=== PATIENT | male | born 1940 | race Caucasian/White ===

== ENCOUNTER → 2016-10-24 | Outpatient (CLI) | payer MEDICARE ==
[~2016-10-24] MED LIST: LEVO25TA4 PO; LOVA10TA PO; MULT-252 PO; OMEP-110 PO; REGADENOSON 0.4 MG/5 ML SYRINGE ONE; TERA1CAP3 PO
== END | disposition home or self-care (01) ==
LOC: CFH 07:57
PROVIDERS: ATTEND Internal Medicine Cardiovascular Disease
DX: I25.810 Atherosclerosis of coronary artery bypass graft(s) without angina pectoris (principal); I25.9 Chronic ischemic heart disease, unspecified; I10 Essential (primary) hypertension
CPT/HCPCS: 78452; 93017; 93306; A9502; J2785

== ENCOUNTER 2017-09-10 07:57 | Observation (INO) | payer MEDICARE ==
[2017-09-08 13:42] LABS: BASOPHILS # (AUTO) 0.02 x10^3/uL (0-0.1); BASOPHILS % (AUTO) 0 % (0-1); EOSINOPHILS # (AUTO) 0.07 x10^3/uL (0-0.4); EOSINOPHILS % (AUTO) 1 % (1-7); LYMPHOCYTES # (AUTO) 1.27 x10^3/uL (1-3.4); LYMPHOCYTES % (AUTO) 23 % (22-44); MD NO; MEAN CORPUSCULAR HEMOGLOBIN 29.9 pg (27.5-34.5); MEAN CORPUSCULAR HGB CONC 33.8 g/dL (33.2-36.2); MEAN CORPUSCULAR VOLUME 88.4 fL (81-97); MONOCYTES # (AUTO) 0.39 x10^3/uL (0.2-0.8); MONOCYTES % (AUTO) 7 % (2-9); NEUTROPHILS # (AUTO) 3.89 x10^3/uL (1.8-6.8); NEUTROPHILS % (AUTO) 69 % (42-75); PLATELET COUNT 223 x10^3/uL (130-400); RED BLOOD COUNT 4.93 x10^6/uL (4.38-5.82)
[2017-09-08 13:54] LABS: ANION GAP 7 mmol/L (5-15); CALCIUM 9.3 mg/dL (8.5-10.1); CHLORIDE 107 mmol/L (98-107); CREATININE 1.38 mg/dL (0.7-1.3)
[~2017-09-10] VITALS: Ht 182.9 cm; Wt 89.2 kg
[~2017-09-10 07:57] MED LIST changes: +HYDR25TA6 PO; +METO25TA91 PO; -REGADENOSON 0.4 MG/5 ML SYRINGE ONE
[2017-09-10] MEDS ORDERED: CEFAZOLIN PMX 1GM/50ML 50 ML ONE (10:06)
[2017-09-10] MEDS ORDERED: CEFAZOLIN 1,000 MG ONE (10:06)
[2017-09-10] MEDS ORDERED: LIDOCAINE/PF 1%, 30ML ONE (10:06)
[2017-09-10] MEDS ORDERED: MIDAZOLAM 1 MG/ML, 5ML ONE (10:06)
[2017-09-10] MEDS ORDERED: FENTANYL PF 100 MCG/2ML ONE (10:06)
[2017-09-10] MEDS ORDERED: ACETAMINOPHEN 325 MG TABLET PO PRN (11:30)
[2017-09-10] MEDS ORDERED: HYDROcodone/APAP 5/325 TABLET PO PRN (11:30)
[2017-09-10 16:45] VITALS: BP 157/80
[2017-09-10] MEDS: CEFAZOLIN PMX 1GM/50ML 50 ML IVPB SCH (18:02)
[2017-09-10 19:26] VITALS: BP 118/76
[2017-09-10] MEDS ORDERED: LOVASTATIN 10 MG TABLET PO SCH (21:00)
[2017-09-10] MEDS: SODIUM CHLORIDE FLUSH 10ML SYR IVF SCH (21:02)
[2017-09-11] MEDS: CEFAZOLIN PMX 1GM/50ML 50 ML IVPB SCH (01:59)
[2017-09-11 03:25] VITALS: BP 122/63
[2017-09-11] MEDS ORDERED: LEVOTHYROXINE 100 MCG TABLET ONE (08:46)
[2017-09-11 08:51] VITALS: BP 161/90
[2017-09-11] MEDS: SODIUM CHLORIDE FLUSH 10ML SYR IVF SCH (08:58)
[2017-09-11] MEDS ORDERED: METOPROLOL SUCCINATE 25 MG TAB.ER.24H PO SCH (09:00)
[2017-09-11] MEDS ORDERED: OMEPRAZOLE 20 MG CAPSULE.DR PO SCH (09:00)
[2017-09-11] MEDS ORDERED: LEVOTHYROXINE 25 MCG TABLET PO SCH (09:00)
[2017-09-11] MEDS ORDERED: TERAZOSIN 5MG CAPSULE PO SCH (09:00)
[2017-09-11] MEDS ORDERED: HYDROCHLOROTHIAZIDE 25 MG TABLET PO SCH (09:00)
[2017-09-11] MEDS ORDERED: MULTIVITAMIN 1 TABLET PO SCH (09:00)
[2017-09-11 10:45] VITALS: BP 132/81
== END 2017-09-11 11:10 | disposition home or self-care (01) ==
LOC: CACL 07:57 → ORIP 11:09 → 5SO 16:26 → DCLOUNGE 09-11 10:52
PROVIDERS: ADMIT Internal Medicine Cardiovascular Disease; ATTEND Internal Medicine Cardiovascular Disease
DX: I49.5 Sick sinus syndrome (principal); R00.1 Bradycardia, unspecified; I10 Essential (primary) hypertension; E78.5 Hyperlipidemia, unspecified; E03.9 Hypothyroidism, unspecified; E78.00 Pure hypercholesterolemia, unspecified
CPT/HCPCS: 33208; 36415; 71045; 71046; 80048; 85025; 96365; 96366; 99156; 99157; C1779; C1785; C1892; G0378; J0690; J2250; J3010; J3490

== ENCOUNTER 2018-08-22 04:49 | Emergency (ER) | payer MEDICARE ==
[~2018-08-22] VITALS: Ht 188 cm; Wt 85.0 kg
--- NOTE | 2018-08-22 05:26 | NUR ---
PATIENT REPORTS HE HAD A GLF TODAY. HE WOKE UP TO THE USE THE BATHROOM AND FELT DIZZY AND FELL. PT HIT HIS HEAD. NO LOC. LAC NOTED TO FOREHEAD. VS STABLE. PT HAS A PACEMAKER. ROLL PLUGGER ON. PT IS PACED. CALL LIGHT IN PLACE. AT BEDSIDE. PT SEEN BY PHANI CURRIE. WILL CONTINUE TO MONITOR.
[2018-08-22] MEDS ORDERED: DIPH,PERTUSS(ACELL),TET VAC/PF 0.5 ML IM-VACC ONE ×2 (05:30→05:34)
[2018-08-22 05:38] LABS: BASOPHILS # (AUTO) 0.02 x10^3/uL (0-0.1); BASOPHILS % (AUTO) 0 % (0-1); EOSINOPHILS # (AUTO) 0.11 x10^3/uL (0-0.4); EOSINOPHILS % (AUTO) 2 % (1-7); LYMPHOCYTES # (AUTO) 1.14 x10^3/uL (1-3.4); LYMPHOCYTES % (AUTO) 25 % (22-44); MD NO; MEAN CORPUSCULAR HEMOGLOBIN 29.1 pg (27.5-34.5); MEAN CORPUSCULAR HGB CONC 32.7 g/dL (33.2-36.2); MEAN CORPUSCULAR VOLUME 88.8 fL (81-97); MEAN PLATELET VOLUME 8.4 fL (7.4-10.4); MONOCYTES # (AUTO) 0.42 x10^3/uL (0.2-0.8); MONOCYTES % (AUTO) 9 % (2-9); NEUTROPHILS # (AUTO) 2.88 x10^3/uL (1.8-6.8); NEUTROPHILS % (AUTO) 63 % (42-75); PLATELET COUNT 183 x10^3/uL (130-400); RED BLOOD COUNT 4.76 x10^6/uL (4.38-5.82); RED CELL DISTRIBUTION WIDTH 13.1 % (9.4-14.8)
--- NOTE | 2018-08-22 05:41 | NUR ---
pt went to ct
[2018-08-22 05:52] LABS: ALBUMIN 3.8 g/dL (3.4-5.0); ANION GAP 6 mmol/L (5-15); CHLORIDE 111 mmol/L (98-107); CREATININE 1.29 mg/dL (0.7-1.3)
[2018-08-22] MEDS ORDERED: LIDOCAINE-MPF 1%, 5ML ONE (06:21)
--- NOTE | 2018-08-22 06:35 | NUR ---
PHANI CURRIE IN ROOM DOING LAC REPAIR
--- NOTE | 2018-08-22 07:03 | NUR ---
REPORT GIVEN TO JACKIE HERNANDEZ
[2018-08-22] MEDS ORDERED: BACITRACIN ZINC OINT 500U/GM, 0.9 GM ONE (07:16)
[2018-08-22 07:20] VITALS: BP 159/90
--- NOTE | 2018-08-22 07:32 | NUR ---
Patient & spouse given wound care & discharge instructions and they have confirmed that they understand the instructions. Patient ambulatory with steady gait.
== END 2018-08-22 07:34 | disposition home or self-care (01) ==
LOC: ED 06:46
DX: S01.81XA Laceration without foreign body of other part of head, initial encounter (principal); W01.0XXA Fall on same level from slipping, tripping and stumbling without subsequent striking against object, initial encounter; Y93.89 Activity, other specified; Y92.002 Bathroom of unspecified non-institutional (private) residence as the place of occurrence of the external cause; Y99.8 Other external cause status
CPT/HCPCS: 12013; 36415; 70450; 72125; 80048; 82040; 85025; 90471; 90715; 93005; 99284

== ENCOUNTER → 2018-09-03 | Outpatient (CLI) | payer MEDICARE | END | disposition home or self-care (01) | LOC: CVU 12:41 | PROVIDERS: ATTEND Internal Medicine Cardiovascular Disease | DX: I35.1 Nonrheumatic aortic (valve) insufficiency (principal); E78.5 Hyperlipidemia, unspecified; I10 Essential (primary) hypertension; Z95.0 Presence of cardiac pacemaker | CPT/HCPCS: 0399T; 93306 ==

== ENCOUNTER → 2019-06-04 | Outpatient (CLI) | payer MEDICARE ==
[~2019-06-04] MED LIST changes: +REGADENOSON 0.4 MG/5 ML SYRINGE ONE
== END | disposition home or self-care (01) ==
LOC: CFH 07:23
PROVIDERS: ATTEND Internal Medicine Cardiovascular Disease
DX: I21.09 ST elevation (STEMI) myocardial infarction involving other coronary artery of anterior wall (principal); I21.19 ST elevation (STEMI) myocardial infarction involving other coronary artery of inferior wall; I25.10 Atherosclerotic heart disease of native coronary artery without angina pectoris; I10 Essential (primary) hypertension; Z95.0 Presence of cardiac pacemaker
CPT/HCPCS: 78452; 93017; A9502; J2785

== ENCOUNTER 2019-06-17 09:24 | Day surgery (SDC) | payer MEDICARE ==
[2019-06-14 12:15] VITALS: BP 171/96
[2019-06-14 12:42] LABS: BASOPHILS # (AUTO) 0.03 x10^3/uL (0-0.1); BASOPHILS % (AUTO) 1 % (0-1); EOSINOPHILS # (AUTO) 0.05 x10^3/uL (0-0.4); EOSINOPHILS % (AUTO) 1 % (1-7); LYMPHOCYTES # (AUTO) 1.08 x10^3/uL (1-3.4); LYMPHOCYTES % (AUTO) 17 % (22-44); MD NO; MEAN CORPUSCULAR HEMOGLOBIN 30.1 pg (27.5-34.5); MEAN CORPUSCULAR HGB CONC 33.8 g/dL (33.2-36.2); MEAN PLATELET VOLUME 8.3 fL (7.4-10.4); MONOCYTES # (AUTO) 0.46 x10^3/uL (0.2-0.8); MONOCYTES % (AUTO) 7 % (2-9); NEUTROPHILS # (AUTO) 4.71 x10^3/uL (1.8-6.8); NEUTROPHILS % (AUTO) 74 % (42-75); PLATELET COUNT 214 x10^3/uL (130-400); RED BLOOD COUNT 4.91 x10^6/uL (4.38-5.82); RED CELL DISTRIBUTION WIDTH 14.5 % (9.4-14.8)
[2019-06-14 12:55] LABS: ALANINE AMINOTRANSFERASE 28 U/L (12-78); ANION GAP 3 mmol/L (5-15); CALCIUM 9.5 mg/dL (8.5-10.1); CHLORIDE 110 mmol/L (98-107); CREATININE 1.22 mg/dL (0.7-1.3)
[2019-06-14 12:57] LABS: ALKALINE PHOSPHATASE 94 U/L (45-117); BILIRUBIN,TOTAL 1.3 mg/dL (0.2-1.0); TOTAL PROTEIN 7.1 g/dL (6.4-8.2)
[2019-06-14 13:04] LABS: INTERNATIONAL NORMALIZED RATIO 1.01 (0.93-1.1); PROTHROMBIN TIME 10.7 Seconds (9.6-11.5)
[~2019-06-17] VITALS: Ht 182.9 cm; Wt 84.0 kg
[~2019-06-17 09:24] MED LIST changes: +FINA5TAB4 PO; +LOSA50TA14 PO; -REGADENOSON 0.4 MG/5 ML SYRINGE ONE; +TAMS-11 PO
[2019-06-17] MEDS ORDERED: ASPIRIN 325 MG TABLET EC PO ONE (10:00)
[2019-06-17] MEDS ORDERED: ROSU10TA2 PO (10:06)
[2019-06-17] MEDS ORDERED: ASPIRIN 325 MG TABLET EC ONE ×2 (10:10→13:51)
[2019-06-17] MEDS ORDERED: FENTANYL PF 100 MCG/2ML ONE (12:56)
[2019-06-17] MEDS ORDERED: HEPARIN 1,000 UNITS/ML, 10ML ONE (12:57)
[2019-06-17] MEDS ORDERED: LIDOCAINE-MPF 1%, 5ML ONE (12:57)
[2019-06-17] MEDS ORDERED: BIVALIRUDIN 250 MG ONE ×2 (12:57→15:48)
[2019-06-17] MEDS ORDERED: VERAPAMIL 2.5 MG/ML, 2ML ONE (12:57)
[2019-06-17] MEDS ORDERED: MIDAZOLAM 1 MG/ML, 5ML ONE (12:57)
[2019-06-17] MEDS ORDERED: TICAGRELOR 90 MG TABLET ONE (12:57)
[2019-06-17] MEDS ORDERED: SODIUM CHLORIDE 0.9% 1,000 ML IV SCH (13:54)
[2019-06-17 16:00] VITALS: BP 197/107
[2019-06-17 17:00] VITALS: BP 184/106
[2019-06-17] MEDS ORDERED: METOPROLOL SUCCINATE 100 MG TAB.ER.24H ONE (17:34)
[2019-06-17 18:00] VITALS: BP 144/88
[2019-06-17] MEDS ORDERED: METOPROLOL SUCCINATE 100 MG TAB.ER.24H PO SCH (18:00)
[2019-06-17 20:00] VITALS: BP 159/94
[2019-06-17] MEDS: TICAGRELOR 90 MG TABLET PO SCH (20:02)
[2019-06-18 00:37] VITALS: BP 160/89
[2019-06-18 05:25] LABS: ANION GAP 5 mmol/L (5-15); CALCIUM 9.2 mg/dL (8.5-10.1); CHLORIDE 110 mmol/L (98-107); CREATININE 1.23 mg/dL (0.7-1.3)
[2019-06-18 05:49] VITALS: BP 165/99
[2019-06-18] MEDS ORDERED: LEVOTHYROXINE 100 MCG TABLET PO SCH (06:00)
[2019-06-18] MEDS ORDERED: OMEPRAZOLE 20 MG CAPSULE.DR PO SCH (07:00)
[2019-06-18 07:05] VITALS: BP 178/86
[2019-06-18] MEDS: TICAGRELOR 90 MG TABLET PO SCH (08:42)
[2019-06-18] MEDS ORDERED: LOSARTAN 50MG TABLET PO SCH (09:00)
[2019-06-18] MEDS ORDERED: ASPIRIN 81 MG TABLET EC PO SCH (09:00)
[2019-06-18] MEDS ORDERED: METOPROLOL SUCCINATE 100 MG TAB.ER.24H PO SCH (09:00)
[2019-06-18] MEDS ORDERED: FINASTERIDE 5 MG TABLET PO SCH (09:00)
[2019-06-18] MEDS ORDERED: TAMSULOSIN 0.4 MG CAP.ER.24H PO SCH (09:00)
[2019-06-18] MEDS ORDERED: MULTIVITAMIN 1 TABLET PO SCH (09:00)
[2019-06-18] MEDS ORDERED: ASPI81TA45 PO (09:19)
[2019-06-18] MEDS ORDERED: TICA90TA PO (09:19)
[2019-06-18] MEDS ORDERED: CARV25TA12 PO (09:19)
[2019-06-18] MEDS ORDERED: CARVEDILOL 25 MG TABLET ONE (09:57)
[2019-06-18] MEDS ORDERED: CARVEDILOL 25 MG TABLET PO SCH (18:00)
== END 2019-06-18 10:51 | disposition home or self-care (01) ==
LOC: CACL 09:24 → 5SO 16:07 → UNDOADMOB 23:12 → CACL 23:33 → 5SO 06-18 10:40 → DCLOUNGE 06-18 10:40 → CACL 06-18 10:51 → UNDODISOB 06-18 10:51
PROVIDERS: ATTEND Internal Medicine Cardiovascular Disease
DX: R00.2 Palpitations (principal); I25.10 Atherosclerotic heart disease of native coronary artery without angina pectoris; I10 Essential (primary) hypertension; E78.2 Mixed hyperlipidemia; E03.9 Hypothyroidism, unspecified; Z79.890 Hormone replacement therapy; Z79.01 Long term (current) use of anticoagulants; Z79.899 Other long term (current) drug therapy; Z95.0 Presence of cardiac pacemaker
CPT/HCPCS: 36415; 71046; 80048; 80053; 85025; 85610; 85730; 93005; 93306; 93458; 99156; 99157; C1725; C1769; C1874; C1887; C1894; C9600; G0378; J0583; J1644; J2250; J3010; Q9967

== ENCOUNTER 2019-07-02 09:37 | Observation (INO) | payer MEDICARE ==
[~2019-07-02] VITALS: Ht 182.9 cm; Wt 81.0 kg
[~2019-07-02 09:37] MED LIST changes: +ASPI81TA45 PO; +CARV25TA12 PO; +ROSU10TA2 PO; +TICA90TA PO
[2019-07-02 10:50] VITALS: BP 156/89
[2019-07-02] MEDS ORDERED: SODIUM CHLORIDE 0.9% 1,000 ML IV SCH ×2 (11:05→13:42)
[2019-07-02] MEDS ORDERED: CARV3.1212 PO (11:36)
[2019-07-02 12:11] LABS: BASOPHILS # (AUTO) 0.02 x10^3/uL (0-0.1); BASOPHILS % (AUTO) 1 % (0-1); EOSINOPHILS # (AUTO) 0.04 x10^3/uL (0-0.4); EOSINOPHILS % (AUTO) 1 % (1-7); LYMPHOCYTES # (AUTO) 0.84 x10^3/uL (1-3.4); LYMPHOCYTES % (AUTO) 18 % (22-44); MD NO; MEAN CORPUSCULAR HEMOGLOBIN 30.4 pg (27.5-34.5); MEAN CORPUSCULAR HGB CONC 34.1 g/dL (33.2-36.2); MEAN CORPUSCULAR VOLUME 88.9 fL (81-97); MEAN PLATELET VOLUME 8.5 fL (7.4-10.4); MONOCYTES # (AUTO) 0.37 x10^3/uL (0.2-0.8); MONOCYTES % (AUTO) 8 % (2-9); NEUTROPHILS # (AUTO) 3.38 x10^3/uL (1.8-6.8); NEUTROPHILS % (AUTO) 73 % (42-75); PLATELET COUNT 213 x10^3/uL (130-400); RED BLOOD COUNT 5.19 x10^6/uL (4.38-5.82); RED CELL DISTRIBUTION WIDTH 14.2 % (9.4-14.8)
[2019-07-02 12:12] LABS: ANION GAP 7 mmol/L (5-15); CALCIUM 9.2 mg/dL (8.5-10.1); CHLORIDE 111 mmol/L (98-107); CREATININE 1.28 mg/dL (0.7-1.3)
[2019-07-02] MEDS ORDERED: HEPARIN 1,000 UNITS/ML, 10ML ONE (12:12)
[2019-07-02] MEDS ORDERED: LIDOCAINE 2%, 20ML ONE (12:12)
[2019-07-02] MEDS ORDERED: TICAGRELOR 90 MG TABLET ONE (12:12)
[2019-07-02] MEDS ORDERED: BIVALIRUDIN 250 MG ONE (12:12)
[2019-07-02] MEDS ORDERED: VERAPAMIL 2.5 MG/ML, 2ML ONE (12:12)
[2019-07-02] MEDS ORDERED: FENTANYL PF 100 MCG/2ML ONE (12:12)
[2019-07-02] MEDS ORDERED: MIDAZOLAM 1 MG/ML, 5ML ONE (12:12)
[2019-07-02] MEDS ORDERED: BISACODYL 5 MG EC TABLET PO PRN (14:00)
[2019-07-02] MEDS ORDERED: ONDANSETRON 2MG/ML, 2ML IVPush PRN (14:00)
[2019-07-02] MEDS ORDERED: ZOLPIDEM 5MG TABLET PO PRN (14:00)
[2019-07-02] MEDS ORDERED: ACETAMINOPHEN 325 MG TABLET PO PRN (14:00)
[2019-07-02 15:24] VITALS: BP 189/49
[2019-07-02] MEDS: LOSARTAN 50MG TABLET PO SCH (15:50)
[2019-07-02 20:18] VITALS: BP 143/77
[2019-07-02] MEDS ORDERED: LOSARTAN 50MG TABLET PO SCH (21:00)
[2019-07-02] MEDS ORDERED: CARVEDILOL 3.125 MG TABLET PO SCH (21:00)
[2019-07-02] MEDS ORDERED: ATORVASTATIN 80 MG TABLET PO SCH (21:00)
[2019-07-02] MEDS ORDERED: TEMPLATE NON-FORMULARY MED. (Rosuvastatin Calcium** (Crestor**) 10 MG) PO SCH (21:00)
[2019-07-02] MEDS: TICAGRELOR 90 MG TABLET PO SCH (21:32)
[2019-07-02 21:34] VITALS: BP 130/65
[2019-07-02] MEDS: CARVEDILOL 25 MG TABLET PO SCH (22:19)
[2019-07-03 01:51] VITALS: BP 146/73
[2019-07-03 05:11] LABS: CHLORIDE 110 mmol/L (98-107)
[2019-07-03 05:24] LABS: ANION GAP 6 mmol/L (5-15); CALCIUM 9.2 mg/dL (8.5-10.1); CREATININE 1.08 mg/dL (0.7-1.3)
[2019-07-03 08:01] VITALS: BP 142/85
[2019-07-03] MEDS ORDERED: OMEPRAZOLE 20 MG CAPSULE.DR PO SCH (09:00)
[2019-07-03] MEDS ORDERED: TAMSULOSIN 0.4 MG CAP.ER.24H PO SCH (09:00)
[2019-07-03] MEDS ORDERED: LEVOTHYROXINE 100 MCG TABLET PO SCH (09:00)
[2019-07-03] MEDS ORDERED: LOSARTAN 50MG TABLET PO SCH (09:00)
[2019-07-03] MEDS ORDERED: MULTIVITAMIN 1 TABLET PO SCH (09:00)
[2019-07-03] MEDS ORDERED: FINASTERIDE 5 MG TABLET PO SCH (09:00)
[2019-07-03] MEDS ORDERED: ASPIRIN 81 MG TABLET EC PO SCH (09:00)
[2019-07-03] MEDS ORDERED: LOSA50TA14 PO (09:04)
[2019-07-03] MEDS: LOSARTAN 50MG TABLET PO SCH (09:14)
[2019-07-03] MEDS: TICAGRELOR 90 MG TABLET PO SCH (09:14)
[2019-07-03] MEDS: CARVEDILOL 25 MG TABLET PO SCH (09:15)
== END 2019-07-03 10:10 | disposition home or self-care (01) ==
LOC: CACL 09:37 → ORIP 13:42 → INTOOBSV 13:42 → 5SO 14:59 → DCLOUNGE 07-03 10:07
PROVIDERS: ADMIT Internal Medicine Cardiovascular Disease; ATTEND Internal Medicine Cardiovascular Disease
DX: I25.10 Atherosclerotic heart disease of native coronary artery without angina pectoris (principal); I49.5 Sick sinus syndrome; I10 Essential (primary) hypertension; I42.9 Cardiomyopathy, unspecified; E78.00 Pure hypercholesterolemia, unspecified; E03.9 Hypothyroidism, unspecified; N28.9 Disorder of kidney and ureter, unspecified; Z79.82 Long term (current) use of aspirin; E78.5 Hyperlipidemia, unspecified; Z95.0 Presence of cardiac pacemaker; Z79.899 Other long term (current) drug therapy
CPT/HCPCS: 36415; 80048; 85014; 85018; 85025; 93458; 99156; 99157; C1725; C1769; C1874; C1887; C1894; C9600; G0378; J0583; J1644; J2250; J3010; J3490; Q9967

== ENCOUNTER 2019-11-17 07:11 | Day surgery (SDC) | payer MEDICARE ==
[2019-11-15 14:40] LABS: ALBUMIN 4.1 g/dL (3.4-5.0); ANION GAP 5 mmol/L (5-15); CALCIUM 9.5 mg/dL (8.5-10.1); CHLORIDE 110 mmol/L (98-107)
[2019-11-15 14:43] LABS: CREATININE 1.32 mg/dL (0.7-1.3)
[2019-11-15 14:44] LABS: ALANINE AMINOTRANSFERASE 31 U/L (12-78); ALKALINE PHOSPHATASE 70 U/L (45-117); BILIRUBIN,TOTAL 1.5 mg/dL (0.2-1.0); TOTAL PROTEIN 6.8 g/dL (6.4-8.2)
[~2019-11-17] VITALS: Ht 182.9 cm; Wt 81.0 kg
[~2019-11-17 07:11] MED LIST changes: +ASPI-496 PO; +CARV3.1212 PO; +MULT-717 PO
[2019-11-17 07:34] VITALS: BP 135/84
[2019-11-17] MEDS ORDERED: LACTATED RINGERS 1,000 ML IV SCH (07:40)
[2019-11-17] MEDS ORDERED: CHLORHEXIDINE 15 ML UDC MM ONE (08:00)
[2019-11-17] MEDS ORDERED: LIDOCAINE 1%-EPI 1:100K, 20ML ONE (08:31)
[2019-11-17] MEDS ORDERED: FENTANYL PF 250 MCG/5ML ONE (08:42)
[2019-11-17] MEDS ORDERED: HYDROmorphone 1 MG/ML, 1ML INJ IVPush PRN (09:30)
[2019-11-17] MEDS ORDERED: PROMETHAZINE 25 MG/ML, 1ML IVPush PRN (09:30)
[2019-11-17] MEDS ORDERED: METOPROLOL 1 MG/ML, 5ML IV PRN (09:30)
[2019-11-17] MEDS ORDERED: PROMETHAZINE 25 MG SUPP PR PRN (09:30)
[2019-11-17] MEDS ORDERED: FENTANYL PF 100 MCG/2ML IV PRN (09:30)
[2019-11-17] MEDS ORDERED: OXYcodone 5 MG/5 ML ORAL.SOL UDC PO PRN (09:30)
[2019-11-17] MEDS ORDERED: LABETALOL 5MG/ML, 20ML IV PRN (09:30)
[2019-11-17] MEDS ORDERED: hydrALAzine 20 MG/ML, 1ML IV PRN (09:30)
[2019-11-17] MEDS ORDERED: ONDANSETRON 2MG/ML, 2ML IVPush PRN (09:30)
[2019-11-17] MEDS ORDERED: ACETAMINOPHEN 325 MG TABLET PO PRN (09:30)
[2019-11-17] MEDS ORDERED: ONDANSETRON 2MG/ML, 2ML ONE (09:38)
[2019-11-17] MEDS ORDERED: GLYCOPYRROLATE 0.2MG/1ML, 5ML ONE (09:38)
[2019-11-17] MEDS ORDERED: PROPOFOL 10 MG/ML, 20ML ONE (09:38)
[2019-11-17] MEDS ORDERED: ROCURONIUM 10MG/ML,5ML ONE (09:38)
[2019-11-17] MEDS ORDERED: CEFAZOLIN 1,000 MG ONE (09:38)
[2019-11-17] MEDS ORDERED: DEXAMETHASONE 4 MG/ML, 1ML ONE (09:38)
[2019-11-17] MEDS ORDERED: SUCCINYLCHOLINE 20 MG/ML, 10ML ONE (09:38)
[2019-11-17] MEDS ORDERED: NEOSTIGMINE 1 MG/ML, 10ML ONE (09:38)
[2019-11-17] MEDS ORDERED: SUGAMMADEX 200 MG/2 ML IVPush ONE (10:16)
== END 2019-11-17 12:05 | disposition home or self-care (01) ==
LOC: OUT 07:11
PROVIDERS: ATTEND Otolaryngology
DX: C43.4 Malignant melanoma of scalp and neck (principal); Z11.59 Encounter for screening for other viral diseases; I25.10 Atherosclerotic heart disease of native coronary artery without angina pectoris; I10 Essential (primary) hypertension; E78.2 Mixed hyperlipidemia; I25.2 Old myocardial infarction; E78.5 Hyperlipidemia, unspecified; I42.9 Cardiomyopathy, unspecified; Z79.82 Long term (current) use of aspirin; Z79.890 Hormone replacement therapy; Z79.899 Other long term (current) drug therapy; Z95.0 Presence of cardiac pacemaker
CPT/HCPCS: 21556; 36415; 38510; 80053; 87635; 88305; 88307; 88342; 93005; J0330; J0690; J1100; J2405; J2704; J2710; J3010; J3490; J7120

== ENCOUNTER → 2020-01-19 | Outpatient (CLI) | payer MEDICARE | END | disposition home or self-care (01) | LOC: PETCFH 07:24 | PROVIDERS: ATTEND Specialist | DX: C43.4 Malignant melanoma of scalp and neck (principal) | CPT/HCPCS: 78816; A9552 ==

== ENCOUNTER → 2020-08-03 | Outpatient (CLI) | payer MEDICARE | END | disposition home or self-care (01) | LOC: RAD 08-02 12:29 → EDSTATUS 08-02 13:00 → RAD 08:25 | PROVIDERS: ATTEND Family Medicine | DX: S49.92XA Unspecified injury of left shoulder and upper arm, initial encounter (principal); M19.012 Primary osteoarthritis, left shoulder; M75.52 Bursitis of left shoulder; X58.XXXA Exposure to other specified factors, initial encounter; Y93.89 Activity, other specified; Y92.89 Other specified places as the place of occurrence of the external cause; Y99.8 Other external cause status ==